=== PATIENT | male | born 1955 | race Caucasian/White ===

== ENCOUNTER 2016-08-06 09:00 | Emergency (ER) | payer MEDICAID ==
[~2016-08-06] VITALS: Ht 170.2 cm; Wt 100.7 kg
[2016-08-06] MEDS ORDERED: SODIUM CHLORIDE 0.9% 1,000 ML IV ONE (10:00)
[2016-08-06 10:13] LABS: Potassium 4.3 mmol/L (3.5-5.1)
[2016-08-06 10:15] LABS: Basophils # (auto) 0.1 uL; Basophils % (auto) 1.4 % (0.0-2.0); DEFINITIVE VIEW TRANSMISSION; Eosinophils # (auto) 0.1 uL; Eosinophils % (auto) 2.6 % (0.0-7.0); Hematocrit 39.9 % (41.0-53.0); Hemoglobin 12.7 g/dL (13.5-17.5); Lymphocytes # (auto) 1.4 uL; Lymphocytes % (auto) 25.3 % (10.0-50.0); Mean Corpuscular Hemoglobin 25.6 pg (28.0-32.0); Mean Corpuscular Hgb Conc. 31.8 g/dL (32.0-36.0); Mean Corpuscular Volume 80.6 fL (80.0-100.0); Mean Platelet Volume 7.8 fL (7.4-10.4); Monocytes # (auto) 0.6 uL; Monocytes % (auto) 11.1 % (0.0-12.0); Neutrophils # (auto) 3.4 uL; Neutrophils % (auto) 59.6 % (37.0-80.0); Platelet Count (auto) 488 10^3/uL (140-450); Red Cell Distribution Width 16.1 % (11.6-16.0); White Blood Cell 5.6 10^3/uL (4.4-10.8)
[2016-08-06 10:16] LABS: Albumin 3.8 g/dL (3.4-5.0); BUN/Creatinine Ratio 18.9; Calcium 8.7 mg/dL (8.5-10.1)
[2016-08-06 10:19] LABS: Bilirubin, Total 0.6 mg/dL (0.2-1.0); Total Protein 7.9 g/dL (6.4-8.2)
[2016-08-06 10:34] VITALS: BP 162/98
[2016-08-06] MEDS ORDERED: ONDANSETRON HCL 4 MG/2 ML VIAL IV ONE (10:45)
[2016-08-06] MEDS ORDERED: MORPHINE SULFATE 4 MG/ML SYRG IV ONE (10:45)
[2016-08-06 14:04] LABS: B-Type Natriuretic Peptide 25.21 pg/mL (0-100)
[2016-08-06 14:07] LABS: Temperature: 22.5 C (20.0-25.0)
== END 2016-08-06 16:06 | disposition home or self-care (01) ==
LOC: ER 09:00
DX: K42.9 Umbilical hernia without obstruction or gangrene (principal); I10 Essential (primary) hypertension; K21.9 Gastro-esophageal reflux disease without esophagitis
CPT/HCPCS: 36415; 71010; 74176; 80053; 83690; 83880; 84484; 85025; 93005; 94761; 96361; 96374; 96375; 99285; J2270; J2405; J7030

== ENCOUNTER 2016-08-23 06:04 | Emergency (ER) | payer MEDICAID ==
[~2016-08-23] VITALS: Ht 172.7 cm; Wt 100.7 kg
[2016-08-23 09:41] VITALS: BP 116/88
[2016-08-23] MEDS ORDERED: KETOROLAC TROMETH 60MG/2ML VIAL IM ONE (09:45)
== END 2016-08-23 12:15 | disposition home or self-care (01) ==
LOC: ER 06:04
DX: M16.12 Unilateral primary osteoarthritis, left hip (principal); I10 Essential (primary) hypertension; K21.9 Gastro-esophageal reflux disease without esophagitis; R20.0 Anesthesia of skin
CPT/HCPCS: 73502; 96372; 99284; J1885

== ENCOUNTER 2017-01-08 08:17 | Inpatient (IN) | payer MEDICAID ==
[~2017-01-08] VITALS: Ht 172.7 cm; Wt 103.6 kg
[2017-01-08] VITALS (12 sets, daily range): BP systolic 98–128; BP diastolic 45–82
[2017-01-08 09:02] LABS: Urine WBC None Seen /hpf (0 - 3)
[2017-01-08 09:13] LABS: Urine Bacteria NONE SEEN /hpf (None Seen); Urine Blood Negative /uL (Negative); Urine Specific Gravity 1.014 (1.001-1.035)
[2017-01-08 09:35] LABS: Basophils # (auto) 0.1 uL; Eosinophils # (auto) 0.2 uL; Eosinophils % (auto) 2.1 % (0.0-7.0); Hemoglobin 7.6 g/dL (13.5-17.5); Red Cell Distribution Width 17.3 % (11.8-14.3)
[2017-01-08 09:37] LABS: Basophils % (auto) 1.1 % (0.0-2.0); Hematocrit 24.3 % (41.0-53.0); Lymphocytes # (auto) 1.6 uL; Lymphocytes % (auto) 14.1 % (10.0-50.0); Mean Corpuscular Hemoglobin 22.9 pg (28.0-32.0); Mean Corpuscular Hgb Conc. 31.5 g/dL (32.0-36.0); Mean Corpuscular Volume 72.8 fL (80.0-100.0); Monocytes # (auto) 1.1 uL; Neutrophils # (auto) 8.2 uL; Neutrophils % (auto) 72.7 % (37.0-80.0); Nucleated Red Blood Cells % 0.1 %; Red Blood Cells 3.34 10^6/uL (4.5-5.90); White Blood Cell 11.2 10^3/uL (4.4-10.8)
[2017-01-08 09:39] LABS: Platelet Count (auto) 539 10^3/uL (140-450)
[2017-01-08 10:01] LABS: Albumin 3.4 g/dL (3.4-5.0); BUN/Creatinine Ratio 10.3; Bilirubin, Total 0.6 mg/dL (0.2-1.0); Calcium 8.4 mg/dL (8.5-10.1); Potassium 3.7 mmol/L (3.5-5.1); Total Protein 7.5 g/dL (6.4-8.2)
[2017-01-08] MEDS ORDERED: FERROUS SULFATE 325 MG TAB PO ONE (11:00)
[2017-01-08] MEDS ORDERED: ACETAMINOPHEN 325 MG TAB PO PRN (12:00)
[2017-01-08] MEDS ORDERED: ONDANSETRON HCL 4 MG/2 ML VIAL IV PRN (12:00)
[2017-01-08] MEDS ORDERED: DOCUSATE SOD 100 MG CAP PO PRN (12:00)
[2017-01-08] MEDS ORDERED: LISINOPRIL 20 MG TAB PO ONE (12:15)
[2017-01-08] MEDS ORDERED: PANTOPRAZOLE 40 MG/10 ML VIAL IV ONE (12:15)
[2017-01-08] MEDS ORDERED: FAMOTIDINE (10MG/ML) 2ML VL IV ONE (12:15)
[2017-01-08] MEDS: MULTIPLE VITAMIN TAB PO SCH (12:28)
[2017-01-08] MEDS: SODIUM CHLORIDE 0.9% 1,000 ML IV SCH (12:28)
[2017-01-08] MEDS ORDERED: CLOPIDOGREL BISULFATE 75 MG TAB PO ONE (13:00)
[2017-01-08] MEDS ORDERED: ASPirin-EC 81 mg tab PO ONE (13:00)
[2017-01-08] MEDS: HYDROcodone-ACET 5/325MG TAB PO PRN ×3 (13:19→22:48)
[2017-01-08 14:31] LABS: INR 1.05 (0.9-1.15); Prothrombin Time 11.4 sec (9.37-12.3)
[2017-01-08] MEDS: PROMETHAZINE W/CODEINE 5 ML ORAL SYRUP PO PRN (17:55)
[2017-01-08] MEDS ORDERED: ATOR1TAB PO (18:14)
[2017-01-08] MEDS ORDERED: LISI30TA36 PO (18:14)
[2017-01-08] MEDS ORDERED: CLOP75TA41 PO (18:14)
[2017-01-08] MEDS ORDERED: PANT1INJ3 PO (18:14)
[2017-01-08] MEDS: PANTOPRAZOLE 40 MG/10 ML VIAL IV SCH (22:25)
[2017-01-08] MEDS: ATORVASTATIN 20 MG TAB PO SCH (22:25)
[2017-01-08] MEDS: TEMAZEPAM 15 MG CAP PO PRN (22:48)
[2017-01-09] VITALS (16 sets, daily range): BP systolic 102–141; BP diastolic 57–88
[2017-01-09 00:42] LABS: Hematocrit 28.8 % (41.0-53.0)
[2017-01-09 00:44] LABS: Hemoglobin 9.2 g/dL (13.5-17.5)
[2017-01-09] MEDS: SODIUM CHLORIDE 0.9% 1,000 ML IV SCH ×2 (07:38→23:16)
[2017-01-09 08:04] LABS: Basophils # (auto) 0.1 uL; Eosinophils # (auto) 0.4 uL; Hemoglobin 10.3 g/dL (13.5-17.5); Lymphocytes # (auto) 1.2 uL; White Blood Cell 6.5 10^3/uL (4.4-10.8)
[2017-01-09 08:06] LABS: Basophils % (auto) 1.6 % (0.0-2.0); Eosinophils % (auto) 5.7 % (0.0-7.0); Hematocrit 32.1 % (41.0-53.0); Lymphocytes % (auto) 18.2 % (10.0-50.0); Mean Corpuscular Hemoglobin 24.9 pg (28.0-32.0); Mean Corpuscular Hgb Conc. 32.1 g/dL (32.0-36.0); Mean Corpuscular Volume 77.5 fL (80.0-100.0); Monocytes % (auto) 14.7 % (0.0-12.0); Neutrophils # (auto) 3.9 uL; Neutrophils % (auto) 59.8 % (37.0-80.0); Platelet Count (auto) 434 10^3/uL (140-450); Red Blood Cells 4.15 10^6/uL (4.5-5.90)
[2017-01-09 08:09] LABS: Red Cell Distribution Width 20.2 % (11.8-14.3)
[2017-01-09 08:29] LABS: BUN/Creatinine Ratio 7.8; Bilirubin, Total 2.8 mg/dL (0.2-1.0); Calcium 8.2 mg/dL (8.5-10.1); Total Protein 6.8 g/dL (6.4-8.2)
[2017-01-09] MEDS ORDERED: LIDOCAINE VISCOUS 2% 15ML UD ONE (09:13)
[2017-01-09] MEDS ORDERED: FLUMAZENIL 0.1 MG/ML INJ 10ML MDV IV ONE (09:13)
[2017-01-09] MEDS ORDERED: SODIUM CHLORIDE LOCK 10 ML ONE (09:13)
[2017-01-09] MEDS ORDERED: NALOXONE HCL 0.4 MG/ML VIAL ONE (09:13)
[2017-01-09] MEDS ORDERED: diphenhdrAMINE HCL 50 MG/1 ML VL ONE (09:13)
[2017-01-09] MEDS: PANTOPRAZOLE 40 MG/10 ML VIAL IV SCH (09:43)
[2017-01-09] MEDS ORDERED: PANTOPRAZOLE 40 MG/10 ML VIAL IV SCH (10:00)
[2017-01-09] MEDS ORDERED: FAMOTIDINE (10MG/ML) 2ML VL IV SCH (10:00)
[2017-01-09] MEDS: fentaNYL CITRATE 100 MCG/2 ML VL ONE ×2 (11:22→11:25)
[2017-01-09] MEDS: MIDAZOLAM HCL 5 MG/ML-1ML VIAL ONE ×2 (11:22→11:25)
[2017-01-09] MEDS: MULTIPLE VITAMIN TAB PO SCH (12:55)
[2017-01-09] MEDS: CLOPIDOGREL BISULFATE 75 MG TAB PO SCH (12:56)
[2017-01-09] MEDS: LISINOPRIL 20 MG TAB PO SCH (12:57)
[2017-01-09] MEDS: ASPirin-EC 81 mg tab PO SCH (12:57)
[2017-01-09] MEDS: PROMETHAZINE W/CODEINE 5 ML ORAL SYRUP PO PRN (12:58)
[2017-01-09] MEDS: BOOST PLUS 8 ounce PO SCH ×2 (12:58→17:50)
[2017-01-09] MEDS: HYDROcodone-ACET 5/325MG TAB PO PRN ×2 (12:58→19:59)
[2017-01-09] MEDS ORDERED: ASPI325T4 PO (13:45)
[2017-01-09] MEDS ORDERED: ALBUTEROL SULF 2.5 MG/0.5ML(0.5%) NEB SOLN NEB PRN (19:30)
[2017-01-09] MEDS ORDERED: LEVOFLOXACIN 500MG 100 ML IV ONE (19:30)
[2017-01-09] MEDS ORDERED: ALBUTEROL SULF 2.5 MG/0.5ML(0.5%) NEB SOLN NEB ONE (19:30)
[2017-01-09] MEDS ORDERED: methylPREDNISolone SOD SUCC 40 MG/ML VL IV ONE (19:30)
[2017-01-09] MEDS ORDERED: SODIUM CHLORIDE 0.9% 1,000 ML IV ONE (20:00)
[2017-01-09] MEDS ORDERED: PIPERACILLIN-TAZOB 3.375GM 50 ML IV ONE (20:00)
[2017-01-09] MEDS: ATORVASTATIN 20 MG TAB PO SCH (22:33)
[2017-01-09] MEDS: PANTOPRAZOLE 40 MG TAB PO SCH (22:34)
[2017-01-09] MEDS: TEMAZEPAM 15 MG CAP PO PRN (22:35)
[2017-01-10] MEDS ORDERED: methylPREDNISolone SOD SUCC 40 MG/ML VL IV SCH
[2017-01-10] MEDS: PIPERACILLIN-TAZOB 3.375GM 50 ML IV SCH ×3 (02:34→14:41)
[2017-01-10 05:37] VITALS: BP 106/72
[2017-01-10] MEDS: SODIUM CHLORIDE 0.9% 1,000 ML IV SCH ×2 (06:00→16:20)
[2017-01-10 07:04] LABS: Mean Corpuscular Hemoglobin 24.9 pg (28.0-32.0)
[2017-01-10 07:08] LABS: Hematocrit 33.9 % (41.0-53.0); Hemoglobin 10.8 g/dL (13.5-17.5); Mean Corpuscular Hgb Conc. 31.7 g/dL (32.0-36.0); Mean Corpuscular Volume 78.7 fL (80.0-100.0); Platelet Count (auto) 489 10^3/uL (140-450); Red Blood Cells 4.31 10^6/uL (4.5-5.90); White Blood Cell 16.8 10^3/uL (4.4-10.8)
[2017-01-10 07:24] LABS: Red Cell Distribution Width 20.4 % (11.8-14.3)
[2017-01-10 07:25] LABS: Basophils % (manual) 0 (0.0-2.0); Blast Cells 0; Eosinophils % (manual) 0 (0-7); Metamyelocytes % 0; Monocytes % (manual) 0 (0-12); Myelocytes % 0; Promyelocytes % 0; Reactive Lymphocytes 0
[2017-01-10 07:30] LABS: Alanine Aminotransferase 32 U/L (16-61); Albumin 2.8 g/dL (3.4-5.0); Alkaline Phosphatase 90 U/L (45-117); Anion Gap 8 (5-15); Aspartate Aminotransferase 30 U/L (15-37); BUN/Creatinine Ratio 10.7; Bilirubin, Total 0.8 mg/dL (0.2-1.0); Blood Urea Nitrogen 14 mg/dL (7-18); Calcium 8.1 mg/dL (8.5-10.1); Carbon Dioxide 25 mmol/L (21-32); Chloride 106 mmol/L (98-107); GFR African American 71 mL/min; GFR Non-African American 59 mL/min; Glucose 159 mg/dL (74-106); Potassium 4.2 mmol/L (3.5-5.1); Sodium 139 mmol/L (136-145); Total Protein 6.7 g/dL (6.4-8.2)
[2017-01-10] MEDS: BOOST PLUS 8 ounce PO SCH ×3 (08:00→18:00)
[2017-01-10] MEDS ORDERED: VANCOMYCIN PER PHARMACY 0 MG IV SCH (09:00)
[2017-01-10 09:09] VITALS: BP 101/64
[2017-01-10] MEDS ORDERED: LEVOFLOXACIN 500MG 100 ML IV SCH (10:00)
[2017-01-10] MEDS: CLOPIDOGREL BISULFATE 75 MG TAB PO SCH (10:47)
[2017-01-10] MEDS: PANTOPRAZOLE 40 MG TAB PO SCH ×2 (10:47→22:17)
[2017-01-10] MEDS: ASPirin-EC 81 mg tab PO SCH (10:47)
[2017-01-10] MEDS: MULTIPLE VITAMIN TAB PO SCH (10:48)
[2017-01-10] MEDS: LISINOPRIL 20 MG TAB PO SCH (10:51)
[2017-01-10 12:01] LABS: Band Neutrophils % (manual) 1; Lymphocytes % (manual) 4 (10.0-50.0)
[2017-01-10 14:44] VITALS: BP 110/69
[2017-01-10] MEDS: HYDROcodone-ACET 5/325MG TAB PO PRN ×2 (15:00→22:17)
[2017-01-10 16:37] VITALS: BP 112/62
[2017-01-10] MEDS ORDERED: SODIUM CHLORIDE 0.9% 1,000 ML IV SCH (17:00)
[2017-01-10 20:16] VITALS: BP 112/62
[2017-01-10 22:00] VITALS: BP 113/74
[2017-01-10] MEDS: ATORVASTATIN 20 MG TAB PO SCH (22:17)
[2017-01-11 05:00] VITALS: BP 134/86
[2017-01-11 06:28] LABS: Basophils # (auto) 0.1 uL; Basophils % (auto) 0.6 % (0.0-2.0); Eosinophils % (auto) 1.1 % (0.0-7.0); Monocytes # (auto) 0.8 uL; Neutrophils % (auto) 82.3 % (37.0-80.0)
[2017-01-11 06:31] LABS: Eosinophils # (auto) 0.1 uL; Hematocrit 32.4 % (41.0-53.0); Hemoglobin 10.1 g/dL (13.5-17.5); Lymphocytes # (auto) 1.4 uL; Lymphocytes % (auto) 10.2 % (10.0-50.0); Mean Corpuscular Hemoglobin 24.9 pg (28.0-32.0); Mean Corpuscular Hgb Conc. 31.3 g/dL (32.0-36.0); Mean Corpuscular Volume 79.4 fL (80.0-100.0); Monocytes % (auto) 5.8 % (0.0-12.0); Neutrophils # (auto) 11.2 uL; Platelet Count (auto) 451 10^3/uL (140-450); Red Blood Cells 4.08 10^6/uL (4.5-5.90); White Blood Cell 13.7 10^3/uL (4.4-10.8)
[2017-01-11 06:36] LABS: Red Cell Distribution Width 20.8 % (11.8-14.3)
[2017-01-11 06:44] LABS: BUN/Creatinine Ratio 17.7; Calcium 8.1 mg/dL (8.5-10.1); Potassium 3.9 mmol/L (3.5-5.1)
[2017-01-11] MEDS: BOOST PLUS 8 ounce PO SCH ×2 (08:29→12:00)
[2017-01-11] MEDS: HYDROcodone-ACET 5/325MG TAB PO PRN (08:31)
[2017-01-11] MEDS ORDERED: ASP81EC PO (08:39)
[2017-01-11] MEDS ORDERED: FUROSEMIDE 40 MG/4 ML VIAL IV ONE (08:45)
[2017-01-11] MEDS ORDERED: POTASSIUM CHL 20 Meq TABLET PO ONE (08:45)
[2017-01-11] MEDS ORDERED: LEVOFLOXACIN 500 MG TAB PO SCH (10:00)
[2017-01-11] MEDS: PANTOPRAZOLE 40 MG TAB PO SCH (10:40)
[2017-01-11] MEDS: CLOPIDOGREL BISULFATE 75 MG TAB PO SCH (10:44)
[2017-01-11] MEDS: LISINOPRIL 20 MG TAB PO SCH (10:44)
[2017-01-11] MEDS: ASPirin-EC 81 mg tab PO SCH (10:44)
[2017-01-11 10:45] VITALS: BP 142/94
[2017-01-11] MEDS: MULTIPLE VITAMIN TAB PO SCH (10:45)
== END 2017-01-11 16:02 | disposition home or self-care (01) | DRG 254 ==
LOC: ER 08:17 → TELE 08:18 → DOU IN ICU 15:01 → TELE-WESTW 01-09 20:43
PROVIDERS: ADMIT Internal Medicine; ATTEND Internal Medicine
PROC: 30233N1 Transfusion of Nonautologous Red Blood Cells into Peripheral Vein, Percutaneous Approach (ICD-10-PCS; principal; 2017-01-08)
PROC: 0DJ08ZZ Inspection of Upper Intestinal Tract, Via Natural or Artificial Opening Endoscopic (ICD-10-PCS; 2017-01-09)
DX: K92.1 Melena (principal); E44.0 Moderate protein-calorie malnutrition; N18.3 Chronic kidney disease, stage 3 (moderate); E83.51 Hypocalcemia; E88.09 Other disorders of plasma-protein metabolism, not elsewhere classified; I12.9 Hypertensive chronic kidney disease with stage 1 through stage 4 chronic kidney disease, or unspecified chronic kidney disease; K21.9 Gastro-esophageal reflux disease without esophagitis; E78.5 Hyperlipidemia, unspecified; K57.30 Diverticulosis of large intestine without perforation or abscess without bleeding; T38.0X5A Adverse effect of glucocorticoids and synthetic analogues, initial encounter; I25.10 Atherosclerotic heart disease of native coronary artery without angina pectoris; R50.84 Febrile nonhemolytic transfusion reaction; J06.9 Acute upper respiratory infection, unspecified; D50.9 Iron deficiency anemia, unspecified; D72.829 Elevated white blood cell count, unspecified; K42.9 Umbilical hernia without obstruction or gangrene; K44.9 Diaphragmatic hernia without obstruction or gangrene; I25.2 Old myocardial infarction; Z95.5 Presence of coronary angioplasty implant and graft; Z79.02 Long term (current) use of antithrombotics/antiplatelets; Z79.82 Long term (current) use of aspirin; Z79.899 Other long term (current) drug therapy; Z87.11 Personal history of peptic ulcer disease; Z82.49 Family history of ischemic heart disease and other diseases of the circulatory system; Y92.89 Other specified places as the place of occurrence of the external cause; Z68.34 Body mass index [BMI] 34.0-34.9, adult
CPT/HCPCS: 36415; 36430; 43235; 71020; 74176; 80048; 80053; 81001; 83735; 84484; 85007; 85014; 85018; 85025; 85027; 85610; 86850; 86900; 86901; 86920; 87081; 93005; 93306; 94640; 96374; 96375; C9113; J1956; J2250; J2543; J3490

== ENCOUNTER 2017-02-28 17:10 | Emergency (ER) | payer MEDICAID ==
[~2017-02-28] VITALS: Ht 170.2 cm; Wt 99.8 kg
[~2017-02-28 17:10] MED LIST: ASP81EC PO; ATOR1TAB PO; CLOP75TA41 PO; LISI30TA36 PO; PANT1INJ3 PO
[2017-02-28 18:23] LABS: Basophils # (auto) 0.1 uL; Basophils % (auto) 0.9 % (0.0-2.0); Eosinophils # (auto) 0.1 uL; Eosinophils % (auto) 1.7 % (0.0-7.0); Hematocrit 36.6 % (41.0-53.0); Hemoglobin 11.9 g/dL (13.5-17.5); Lymphocytes # (auto) 1.4 uL; Lymphocytes % (auto) 22.1 % (10.0-50.0); Mean Corpuscular Hemoglobin 26.5 pg (28.0-32.0); Mean Corpuscular Hgb Conc. 32.4 g/dL (32.0-36.0); Mean Corpuscular Volume 81.9 fL (80.0-100.0); Monocytes # (auto) 0.7 uL; Monocytes % (auto) 11.7 % (0.0-12.0); Neutrophils # (auto) 4.1 uL; Neutrophils % (auto) 63.6 % (37.0-80.0); Platelet Count (auto) 379 10^3/uL (140-450); Red Blood Cells 4.47 10^6/uL (4.5-5.90); Red Cell Distribution Width 22.5 % (11.8-14.3); White Blood Cell 6.4 10^3/uL (4.4-10.8)
[2017-02-28 18:41] LABS: Alanine Aminotransferase 27 U/L (16-61); Albumin 3.6 g/dL (3.4-5.0); Alkaline Phosphatase 98 U/L (45-117); Anion Gap 9 (5-15); Aspartate Aminotransferase 19 U/L (15-37); BUN/Creatinine Ratio 9.8; Bilirubin, Total 0.5 mg/dL (0.2-1.0); Blood Alcohol < 3.0 mg/dL (0-5); Blood Urea Nitrogen 12 mg/dL (7-18); Calcium 8.6 mg/dL (8.5-10.1); Carbon Dioxide 25 mmol/L (21-32); Chloride 105 mmol/L (98-107); GFR African American 77 mL/min; GFR Non-African American 64 mL/min; Glucose 92 mg/dL (74-106); Potassium 3.9 mmol/L (3.5-5.1); Sodium 139 mmol/L (136-145); Total Protein 7.6 g/dL (6.4-8.2)
[2017-02-28 22:10] VITALS: BP 143/96
== END 2017-02-28 22:52 | disposition home or self-care (01) ==
LOC: ER 17:13
DX: R07.89 Other chest pain (principal); I25.10 Atherosclerotic heart disease of native coronary artery without angina pectoris; K21.9 Gastro-esophageal reflux disease without esophagitis; E78.5 Hyperlipidemia, unspecified; I10 Essential (primary) hypertension; Z98.61 Coronary angioplasty status; Z79.899 Other long term (current) drug therapy; Z79.82 Long term (current) use of aspirin
CPT/HCPCS: 36415; 71046; 80053; 80320; 84484; 85025; 93005

== ENCOUNTER 2018-03-16 15:43 | Inpatient (IN) | payer MEDICAID, OTHER ==
[~2018-03-16] VITALS: Ht 170.2 cm; Wt 99.1 kg
[2018-03-16 16:28] LABS: Lymphocytes # (auto) 1.2 uL; Neutrophils # (auto) 12.8 uL; Nucleated Red Blood Cells % 0.1 %
[2018-03-16 16:30] LABS: Basophils # (auto) 0 uL; Basophils % (auto) 0.2 % (0.0-2.0); Eosinophils # (auto) 0 uL; Eosinophils % (auto) 0.3 % (0.0-7.0); Hemoglobin 7.1 g/dL (13.5-17.5); Lymphocytes % (auto) 8.3 % (10.0-50.0); Mean Corpuscular Hemoglobin 24.5 pg (28.0-32.0); Mean Corpuscular Hgb Conc. 32.2 g/dL (32.0-36.0); Mean Corpuscular Volume 76.1 fL (80.0-100.0); Monocytes # (auto) 0.9 uL; Neutrophils % (auto) 85.2 % (37.0-80.0); Platelet Count (auto) 555 10^3/uL (140-450); Red Cell Distribution Width 18.6 % (11.8-14.3)
[2018-03-16 16:37] LABS: Prothrombin Time 10.7 sec (9.27-12.13)
[2018-03-16 16:42] LABS: Albumin 3.5 g/dL (3.4-5.0); Anion Gap 8 (5-15); Blood Urea Nitrogen 27 mg/dL (7-18); Calcium 8.4 mg/dL (8.5-10.1); Carbon Dioxide 23 mmol/L (21-32); Chloride 101 mmol/L (98-107); Glucose 88 mg/dL (74-106); Magnesium 2.4 mg/dL (1.6-2.6); Potassium 3.9 mmol/L (3.5-5.1); Sodium 132 mmol/L (136-145)
[2018-03-16 16:49] LABS: Alanine Aminotransferase 29 U/L (16-61); Alkaline Phosphatase 105 U/L (45-117); Aspartate Aminotransferase 24 U/L (15-37); BUN/Creatinine Ratio 19.3; Bilirubin, Total 0.7 mg/dL (0.2-1.0); GFR Non-African American 54 mL/min
[2018-03-16 17:02] LABS: GFR African American > 60 mL/min
[2018-03-17] VITALS (11 sets, daily range): BP systolic 104–136; BP diastolic 58–78
[2018-03-17 01:01] LABS: Urine Bacteria NONE SEEN /hpf (None Seen); Urine Blood Negative /uL (Negative); Urine Mucus FEW (None Seen); Urine Specific Gravity 1.018 (1.001-1.035); Urine WBC 1 /hpf (0 - 3)
[2018-03-17] MEDS ORDERED: PHYTONADIONE (VIT K)10 MG/ML 1ML VIAL SUBCUT ONE (01:30)
[2018-03-17] MEDS ORDERED: PANTOPRAZOLE 40 MG/10 ML VIAL IV ONE (01:30)
[2018-03-17] MEDS ORDERED: MORPHINE SULFATE 10 MG/ML INJ 1ML SDV IV PRN (03:45)
[2018-03-17] MEDS: SODIUM CHLORIDE 0.9% 1,000 ML IV SCH ×2 (03:45→17:23)
[2018-03-17] MEDS ORDERED: ACETAMINOPHEN 500 MG TAB PO PRN (03:45)
[2018-03-17 06:47] LABS: Basophils # (auto) 0.1 uL; Basophils % (auto) 0.5 % (0.0-2.0); Lymphocytes # (auto) 1.6 uL; Monocytes # (auto) 1.2 uL
[2018-03-17 06:48] LABS: Eosinophils # (auto) 0.2 uL; Eosinophils % (auto) 1.4 % (0.0-7.0); Hematocrit 27.9 % (41.0-53.0); Lymphocytes % (auto) 13.9 % (10.0-50.0); Mean Corpuscular Hemoglobin 25.6 pg (28.0-32.0); Mean Corpuscular Hgb Conc. 32.4 g/dL (32.0-36.0); Mean Corpuscular Volume 78.9 fL (80.0-100.0); Monocytes % (auto) 10.7 % (0.0-12.0); Neutrophils # (auto) 8.3 uL; Neutrophils % (auto) 73.5 % (37.0-80.0); Platelet Count (auto) 445 10^3/uL (140-450); Red Blood Cells 3.54 10^6/uL (4.5-5.90); Red Cell Distribution Width 18.7 % (11.8-14.3); White Blood Cell 11.2 10^3/uL (4.4-10.8)
[2018-03-17 07:06] LABS: Potassium 3.8 mmol/L (3.5-5.1)
[2018-03-17 07:08] LABS: Amphetamine Screen, Urine POSITIVE (NEGATIVE); Barbiturate Scree,Urine NEGATIVE (NEGATIVE); Benzodiazephine Screen, Urine NEGATIVE (NEGATIVE); Cannabinoid Screen, Urine NEGATIVE (NEGATIVE); Cocaine Screen, Urine NEGATIVE (NEGATIVE)
[2018-03-17 07:12] LABS: BUN/Creatinine Ratio 15.5; Calcium 7.9 mg/dL (8.5-10.1)
[2018-03-17 07:15] LABS: Opiate Scree,Urine NEGATIVE (NEGATIVE); Phencyclidine Screen, Urine NEGATIVE (NEGATIVE)
[2018-03-17] MEDS ORDERED: ONDANSETRON HCL 4 MG/2 ML VIAL ONE (09:42)
[2018-03-17] MEDS ORDERED: ONDANSETRON HCL 4 MG/2 ML VIAL IV PRN (09:45)
[2018-03-17] MEDS: PANTOPRAZOLE 40 MG/10 ML VIAL IV SCH ×2 (09:51→21:49)
[2018-03-17] MEDS ORDERED: THIAMINE 100mg/ml INJ (200mg/2ml VIAL) IV ONE (14:00)
[2018-03-17] MEDS ORDERED: THIAMINE HCL 100 MG TAB PO ONE (14:45)
--- NOTE | 2018-03-17 15:15 | NUR ---
Telemetry admit from ER DEEPALI JEREZ admitted to Telemetry unit after SBAR received. Patient oriented to ANTHONY EDWARDS RN primary RN, unit, room, bed, and unit policies regarding patient care and visiting hours. Patient now on continuous telemetry monitoring, tele box #46 and telemetry reading on arrival to unit is Sinus rhythm 72. Patient placed on bedside oxygen, weighed by bedscale and encouraged to call if they need something. All questions and concerns addressed, patient verbalized understanding.
--- NOTE | 2018-03-17 16:00 | NUR ---
MRSA swab sent
[2018-03-17] MEDS ORDERED: VENL75CA78 PO (16:07)
[2018-03-17] MEDS ORDERED: PANT40TA2 PO (16:08)
[2018-03-17] MEDS ORDERED: MORPHINE SULFATE 4 MG/ML SYR/VIAL IV PRN (17:30)
[2018-03-17] MEDS: LORazepam 0.5 MG TAB PO PRN (22:03)
[2018-03-18 05:24] LABS: Basophils # (auto) 0.1 uL; Basophils % (auto) 0.8 % (0.0-2.0); Eosinophils # (auto) 0.3 uL; Hemoglobin 9.1 g/dL (13.5-17.5); Lymphocytes # (auto) 1.5 uL
[2018-03-18 05:25] VITALS: BP 116/79
[2018-03-18 05:27] LABS: Eosinophils % (auto) 3.7 % (0.0-7.0); Hematocrit 27.4 % (41.0-53.0); Lymphocytes % (auto) 19.8 % (10.0-50.0); Mean Corpuscular Hemoglobin 26.2 pg (28.0-32.0); Mean Corpuscular Hgb Conc. 33.3 g/dL (32.0-36.0); Mean Corpuscular Volume 78.8 fL (80.0-100.0); Monocytes # (auto) 0.9 uL; Monocytes % (auto) 11.9 % (0.0-12.0); Neutrophils # (auto) 4.7 uL; Neutrophils % (auto) 63.8 % (37.0-80.0); Nucleated Red Blood Cells % 0.1 %; Platelet Count (auto) 381 10^3/uL (140-450); Red Blood Cells 3.47 10^6/uL (4.5-5.90); Red Cell Distribution Width 18.4 % (11.8-14.3); White Blood Cell 7.3 10^3/uL (4.4-10.8)
[2018-03-18 05:43] LABS: Chloride 106 mmol/L (98-107); Potassium 4.1 mmol/L (3.5-5.1); Sodium 138 mmol/L (136-145)
[2018-03-18 05:53] LABS: Anion Gap 7 (5-15); BUN/Creatinine Ratio 11.4; Blood Urea Nitrogen 15 mg/dL (7-18); Calcium 7.8 mg/dL (8.5-10.1); Carbon Dioxide 25 mmol/L (21-32); Cholesterol 109 mg/dL (< 200); GFR African American > 60 mL/min; GFR Non-African American 58 mL/min; Glucose 90 mg/dL (74-106); HDL Cholesterol 37 mg/dL (40-59); LDL Cholesterol 57 mg/dL (< 100); Triglycerides 154 mg/dL (< 150)
[2018-03-18] MEDS: SODIUM CHLORIDE 0.9% 1,000 ML IV SCH ×2 (06:25→11:30)
--- NOTE | 2018-03-18 07:05 | NUR ---
Morning note Report received and bedside handoff completed. Patient observed resting without S/S of distress. Patient reoriented to this RN and POC. Patient requesting advance in diet and medications restarted. Notified patient that this will be discussed with MD on rounds. Patient verbalized understanding and knows to call if needing assistance.
[2018-03-18 08:30] VITALS: BP 131/80
[2018-03-18] MEDS ORDERED: PNEUMOCOCCAL VACC POLYS 25 MCG/0.5 ML VIAL IM ONE (09:00)
[2018-03-18] MEDS: THIAMINE HCL 100 MG TAB PO SCH (09:36)
[2018-03-18] MEDS: PANTOPRAZOLE 40 MG/10 ML VIAL IV SCH ×2 (09:36→21:55)
[2018-03-18] MEDS ORDERED: THIAMINE 100mg/ml INJ (200mg/2ml VIAL) IV SCH (10:00)
--- NOTE | 2018-03-18 10:00 | NUR ---
MD Bette Jorge rounded on patient, notified this RN that patient is willing to have EGD tomorrow, and should stay on clear liquid diet. Paged Dr. Payan to notify.
--- NOTE | 2018-03-18 10:10 | NUR ---
JOSI returned page Dr. Payan returned page, notified of patient want to go forward with EGD tomorrow, stated okay.
[2018-03-18 12:03] VITALS: BP 103/68
[2018-03-18] MEDS: MORPHINE SULFATE 4 MG/ML SYR/VIAL IV PRN ×3 (13:01→22:06)
[2018-03-18 17:18] VITALS: BP 129/84
--- NOTE | 2018-03-18 20:00 | NUR ---
Opening Shift Note Assumed care of patient, awake and alert, oriented x4. No S/S of distress/SOB or pain. Instructed on POC, aware he will be npo p mn for egd in am and to call for assist PRN, call light within reach. Side rails up x2, bed in lowest locked position. Will continue to monitor for changes Q1hr and PRN.
[2018-03-18 22:00] VITALS: BP 133/75
[2018-03-18] MEDS: LORazepam 0.5 MG TAB PO PRN (22:06)
[2018-03-19] MEDS: SODIUM CHLORIDE 0.9% 1,000 ML IV SCH ×2 (03:45→20:50)
[2018-03-19 04:59] VITALS: BP 133/70
[2018-03-19 05:12] LABS: Hemoglobin 9.3 g/dL (13.5-17.5)
[2018-03-19 05:15] LABS: Hematocrit 28.3 % (41.0-53.0)
[2018-03-19 05:31] LABS: Anion Gap 6 (5-15); Blood Urea Nitrogen 7 mg/dL (7-18); Calcium 7.8 mg/dL (8.5-10.1); Carbon Dioxide 26 mmol/L (21-32); Chloride 106 mmol/L (98-107); Glucose 96 mg/dL (74-106); Potassium 4.3 mmol/L (3.5-5.1); Sodium 138 mmol/L (136-145)
[2018-03-19 05:33] LABS: GFR African American > 60 mL/min; GFR Non-African American > 60 mL/min
--- NOTE | 2018-03-19 07:20 | NUR ---
Morning note Report received and bedside handoff completed. Patient observed resting in bed without any S/S of distress. Patient reporting he is hungry and wants to eat. Notified patient of POC regarding EGD and need not to eat or drink anything until after the procedure. Patient verbalized understanding and knows to call if needing assistance.
[2018-03-19 08:43] VITALS: BP 124/85
[2018-03-19] MEDS: PANTOPRAZOLE 40 MG/10 ML VIAL IV SCH (10:06)
[2018-03-19] MEDS: THIAMINE HCL 100 MG TAB PO SCH (10:06)
--- NOTE | 2018-03-19 10:40 | NUR ---
Transported to pre-op Patient transported to pre-op, report given to Aliyah. Student RN, Roland, staying with patient to observe procedure. No current S/S of distress noted.
[2018-03-19] MEDS ORDERED: LIDOCAINE VISCOUS 2% 15ML UD ONE (11:03)
[2018-03-19] MEDS ORDERED: NALOXONE HCL 0.4 MG/ML VIAL ONE (11:03)
[2018-03-19] MEDS ORDERED: FLUMAZENIL 0.1 MG/ML INJ 10ML MDV IV ONE (11:03)
[2018-03-19] MEDS ORDERED: SODIUM CHLORIDE LOCK 10 ML ONE (11:03)
[2018-03-19] MEDS ORDERED: diphenhdrAMINE HCL 50 MG/1 ML VL ONE (11:04)
[2018-03-19] MEDS ORDERED: PANT40TA2 PO (11:05)
[2018-03-19] MEDS: MIDAZOLAM HCL 5 MG/ML-1ML VIAL ONE ×2 (11:27→11:30)
[2018-03-19] MEDS: fentaNYL CITRATE 100 MCG/2 ML VL ONE ×2 (11:27→11:30)
--- NOTE | 2018-03-19 12:45 | NUR ---
Returned to room Patient returned to room from EGD, without S/S of distress. Patient is notably drowsy, however sat up to eat lunch as soon as he returned. Patient to be monitored until more awake for discharge.
[2018-03-19 13:00] VITALS: BP 130/87
--- NOTE | 2018-03-19 15:11 | NUR ---
Rounds Patient still sleeping after lunch from drowsiness post EGD. Respirations even and unlabored. Discharge on hold until patient wakes up more. 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
--- NOTE | 2018-03-19 15:45 | NUR ---
No PCP documented Patient has no PCP documented on facesheet. 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 Allie Jama called to discuss this and what exactly to do for follow up appointment. She stated to educate patient on making sure he calls insurance to find out who his PCP is, following up within a week, and why this is so important. Patient to be updated upon discharge.
--- NOTE | 2018-03-19 15:47 | NUR ---
Drowsy Patient still very drowsy post EGD, however respirations even and unlabored. Patient easily aroused by name calling and light touch. This RN concerned for patient to be discharged this afternoon. Pagejudit TURNER.
--- NOTE | 2018-03-19 15:50 | NUR ---
MD returned page Dr. Jorge stated to let the patient sleep and if he wakes up later and is ready to go, he may be discharged. However, if he is still very drowsy tonight and doesn't seem okay to be discharged then hold discharge and she will see the patient tomorrow.
[2018-03-19 17:00] VITALS: BP 114/77
--- NOTE | 2018-03-19 17:37 | NUR ---
Discharge held Patient states he still feels too drowsy to be discharged and drive. He stated he values his license and does not want to lose it. Discharge held per MD order.
--- NOTE | 2018-03-19 20:00 | NUR ---
Opening Shift Note Assumed care of patient, awake, oriented x4. No S/S of distress/SOB or pain. Instructed on POC, and to call for assist PRN, call light within reach. Side rails up x2, bed in lowest locked position. Will continue to monitor for changes Q1hr and PRN.
[2018-03-19 22:00] VITALS: BP 112/72
[2018-03-20 05:49] VITALS: BP 130/64
--- NOTE | 2018-03-20 07:20 | NUR ---
Opening Shift Note Assumed care of patient, awake and alert. No S/S of distress/SOB or pain. Insructed on POC and to callfor assist PRN, will continue to monitor for changes Q1hr and PRN.
[2018-03-20 08:00] VITALS: BP 137/88
[2018-03-20 08:27] VITALS: BP 137/88
[2018-03-20] MEDS: THIAMINE HCL 100 MG TAB PO SCH (09:38)
--- NOTE | 2018-03-20 11:40 | NUR ---
PCP and follow up Patient states PCP [facility]. Patient given information for urgent care and follow up information for Dr. Payan by Allie Can.
--- NOTE | 2018-03-20 12:48 | NUR ---
Discharge from Tele Discharge instructions given as ordered. Encourage to follow up with PMD as instructed. All questions and concerns addressed. Patient verbalized understanding. Medication reconciliation form completed and copy given to patient. IV removed with catheter intact, pressure dressing applied. Telemetry unit returned to ICU. Patient taken to vehicle via wheelchair with all personal belongings, accompanied by staff and family member. No distress noted at time of departure.
== END 2018-03-20 12:48 | disposition home or self-care (01) | DRG 377 ==
LOC: ER 15:47 → TELE 03-17 03:56 → TELE-CENTR 03-17 15:10
PROVIDERS: ADMIT Nurse Practitioner Family; ATTEND Internal Medicine
PROC: 30233N1 Transfusion of Nonautologous Red Blood Cells into Peripheral Vein, Percutaneous Approach (ICD-10-PCS; 2018-03-17)
PROC: 0DJ08ZZ Inspection of Upper Intestinal Tract, Via Natural or Artificial Opening Endoscopic (ICD-10-PCS; principal; 2018-03-19 11:25)
DX: K92.1 Melena (principal); N17.0 Acute kidney failure with tubular necrosis; E87.1 Hypo-osmolality and hyponatremia; K44.9 Diaphragmatic hernia without obstruction or gangrene; D64.9 Anemia, unspecified; D72.829 Elevated white blood cell count, unspecified; E78.5 Hyperlipidemia, unspecified; I12.9 Hypertensive chronic kidney disease with stage 1 through stage 4 chronic kidney disease, or unspecified chronic kidney disease; I25.10 Atherosclerotic heart disease of native coronary artery without angina pectoris; K21.9 Gastro-esophageal reflux disease without esophagitis; M16.12 Unilateral primary osteoarthritis, left hip; Z96.641 Presence of right artificial hip joint; N18.3 Chronic kidney disease, stage 3 (moderate); E66.01 Morbid (severe) obesity due to excess calories; F12.10 Cannabis abuse, uncomplicated; Z79.02 Long term (current) use of antithrombotics/antiplatelets; Z68.34 Body mass index [BMI] 34.0-34.9, adult; Z79.82 Long term (current) use of aspirin; Z95.5 Presence of coronary angioplasty implant and graft; Z23 Encounter for immunization; Z71.51 Drug abuse counseling and surveillance of drug abuser
CPT/HCPCS: 36415; 36430; 71045; 74176; 80048; 80053; 80061; 80307; 81001; 83735; 83880; 84484; 85014; 85018; 85025; 85610; 85730; 86850; 86900; 86901; 86920; 87040; 87081; 93005; 96372; 96374; 96375; C9113; G0378; J2250; J2405; J3430